=== PATIENT | male | born 1950 | race Caucasian/White ===

== ENCOUNTER 2017-08-04 14:49 | Emergency (ER) | payer OTHER, MEDICARE ==
[~2017-08-04] VITALS: Ht 182.9 cm; Wt 123.6 kg
[~2017-08-04 14:49] MED LIST: ASPI81TA3 OR; LOPR50TA OR; MULTIVIT PO; PLAV75TA2 OR; XANA0.5T OR; ZOCO40TA OR; [UNRECOGNIZED DRUG - OTHER] PO
[2017-08-04] MEDS ORDERED: GABA-283 PO ×2 (15:09)
[2017-08-04] MEDS ORDERED: BACL10TA2 PO (15:09)
[2017-08-04] MEDS ORDERED: LOSA50TA20 PO (15:11)
[2017-08-04] MEDS ORDERED: SERT50TA PO (15:11)
[2017-08-04] MEDS ORDERED: COUM2.5T17 PO (15:11)
[2017-08-04 16:40] VITALS: BP 164/95
== END 2017-08-04 16:42 | disposition home or self-care (01) ==
LOC: M ED 14:49
DX: S01.01XA Laceration without foreign body of scalp, initial encounter (principal); W22.8XXA Striking against or struck by other objects, initial encounter; Y92.511 Restaurant or cafe as the place of occurrence of the external cause; Y93.89 Activity, other specified; Y99.8 Other external cause status; I10 Essential (primary) hypertension; E78.5 Hyperlipidemia, unspecified; R16.0 Hepatomegaly, not elsewhere classified; Z86.73 Personal history of transient ischemic attack (TIA), and cerebral infarction without residual deficits; Z79.899 Other long term (current) drug therapy; Z79.82 Long term (current) use of aspirin; Z79.01 Long term (current) use of anticoagulants; Z87.891 Personal history of nicotine dependence

== ENCOUNTER 2019-02-04 17:20 | Emergency (ER) | payer MEDICARE, OTHER ==
[~2019-02-04] VITALS: Ht 182.9 cm; Wt 131.8 kg
[~2019-02-04 17:20] MED LIST changes: +BACL10TA2 PO; +COUM2.5T17 PO; +GABA-845 PO; +LOSA50TA88 PO; +SERT-141 PO
[2019-02-04] MEDS ORDERED: IPRATROPIUM 0.5MG/ALBUTEROL 2.5MG INH SOL UD 3ML (DUONEB)(J7620) NEB ONE (17:45)
[2019-02-04] MEDS ORDERED: methylPREDNISolone INJ 125 MG/2 ML VIAL (J2930) IV ONE (17:45)
[2019-02-04 17:59] LABS: BASO # 0.1 10^3/uL (0.0-0.2); BASO % 0.8 % (0.0-1.0); EOS # 0.1 10^3/uL (0.0-0.50); EOS % 1.5 % (0.0-3.0); HEMATOCRIT 47.4 % (42.0-52.0); HEMOGLOBIN 16.2 g/dl (13.5-17.5); LYMPH % 17.1 % (24.0-44.0); MEAN CORPUSCULAR HEMOGLOBIN 32.1 pg (27.0-33.0); MEAN CORPUSCULAR HGB CONC 34.2 g/dl (32.0-36.5); MEAN CORPUSCULAR VOLUME 93.9 fl (80.0-96.0); MONO # 0.4 10^3/uL (0.0-0.8); MONO % 6.3 % (0.0-5.0); NEUTROPHILS # 4.5 10^3/uL (1.8-7.7); NEUTROPHILS % 73.6 % (36.0-66.0); PLATELET COUNT, AUTOMATED 145 10^3/uL (150-450); RED BLOOD COUNT 5.05 10^6/uL (4.30-6.10); WHITE BLOOD COUNT 6.1 10^3/uL (4.0-10.0)
[2019-02-04 18:11] LABS: INR 2.17; PROTHROMBIN TIME 24.6 SECONDS (12.1-14.4)
[2019-02-04 18:12] LABS: ABG BASE EXCESS -2.3 (-2.0-2.0); ABG HCO3 22.5 MEQ/L (22.0-26.0); ABG O2 SATURATION 93.1 % (95.0-99.0); ABG PARTIAL PRESSURE CO2 39.3 mmHg (35.0-45.0); ABG PARTIAL PRESSURE O2 63.9 mmHg (75.0-100.0); ABG STANDARD HCO3 22.4 MEQ/L (22.0-26.0); ABG TOTAL CO2 23.7 MEQ/L (23.0-31.0); ABG pH (ARTERIAL) 7.376 UNITS (7.350-7.450)
[2019-02-04 18:12] LABS: PARTIAL THROMBOPLASTIN TIME 39.1 SECONDS (25.4-37.6)
[2019-02-04] MEDS ORDERED: FUROSEMIDE 40 MG/4 ML VIAL (J1940) IV ONE (18:30)
[2019-02-04 18:37] LABS: INFLUENZA A AMPLIFICATION NEGATIVE (NEGATIVE); INFLUENZA B AMPLIFICATION NEGATIVE (NEGATIVE)
[2019-02-04 18:45] LABS: ALT/SGPT 62 U/L (12-78); BILIRUBIN,DIRECT 0.3 MG/DL (0.0-0.2); BILIRUBIN,TOTAL 1.6 MG/DL (0.2-1.0); BLOOD UREA NITROGEN 15 MG/DL (7-18); CALCIUM LEVEL 8.2 MG/DL (8.8-10.2); CARBON DIOXIDE LEVEL 25 MEQ/L (21-32); CHLORIDE LEVEL 107 MEQ/L (98-107); CPK CREATINE PHOSPHOKINASE 267 U/L (39-308); CREATININE FOR GFR 1.08 MG/DL (0.70-1.30); GLOMERULAR FILTRATION RATE > 60.0 (>49); GLUCOSE, FASTING 126 MG/DL (70-100); MB/CK RELATIVE INDEX 5.39 (< OR =4); NT-PRO BNP 819 PG/ML (<125); POTASSIUM SERUM 4.1 MEQ/L (3.5-5.1); SODIUM LEVEL 140 MEQ/L (136-145); TOTAL PROTEIN 6.9 GM/DL (6.4-8.2)
[2019-02-04] MEDS ORDERED: ISOVUE-370 76% 100ML VIAL (Q9967) As Ordered ONE (18:53)
[2019-02-04] MEDS ORDERED: NITROGLYCERIN 0.4 MG SUBL TABLET SL PRN (19:00)
--- NOTE | 2019-02-04 19:31 | ECGEPIP ---
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
[2019-02-04 19:39] VITALS: BP 169/77
[2019-02-04] MEDS ORDERED: NITROGLYCERIN 2% OINT 1 GM *U/D* PKT TOP ONE (19:45)
[2019-02-04] MEDS ORDERED: ASPIRIN 81 MG CHEW TABLET PO ONE (19:45)
--- NOTE | 2019-02-04 19:50 | REPVR ---
EXAM: CT Angiography Chest With Contrast EXAM DATE/TIME: 02/04/2019 6:56 PM CLINICAL HISTORY: 69 years old, male; Pain; Chest pain; Type not specified; Patient HX: R/O dissection; Additional info: Chest pain R/O dissection TECHNIQUE: Imaging protocol: Axial computed tomographic angiography images of the chest with intravenous contrast using CT angiography protocol. Coronal and sagittal reformatted images were created and reviewed. 3D rendering: MIP reconstructed images were created and reviewed. Radiation optimization: All CT scans at this facility use at least one of these dose optimization techniques: automated exposure control; mA and/or kV adjustment per patient size (includes targeted exams where dose is matched to clinical indication); or iterative reconstruction. Contrast material: ISOVUE 370 Contrast volume: 100 ml Contrast route: IV COMPARISON: CR Chest, 2 view PA, Lat 02/04/2019 6:10 PM FINDINGS: Pulmonary arteries: There is opacification of the pulmonary arteries with no evidence of pulmonary embolus. There is a 2 cm lymph node between the superior vena cava and trachea. Aorta: There is opacification of the aorta which appears normal in size and intact with no evidence of dissection. Lungs: There is prominence of the vascular markings interstitial lung markings in the perihilar regions and posterior aspect of the lungs consistent with mild congestive failure. The ventilation of the lungs has improved since 02/04/2019. There is no evidence of consolidation of lung. Pleural space: There is small bilateral pleural effusions. Heart: The heart is top normal in size. There is no evidence of pericardial effusion. Lymph nodes: Small lymph nodes along the aortic arch. There is small infrahilar lymph nodes. Bones/joints: Unremarkable. No acute fracture. Soft tissues: Unremarkable. IMPRESSION: 1. The aorta is normal in size and intact. 2. Mild congestive changes but markedly decreased sense the examination of 02/04/2019. 3. Small bilateral pleural effusions. Electronically signed by: Robert Hunt On 02/04/2019 19:49:35 PM
--- NOTE | 2019-02-04 20:07 | REPVR ---
EXAM: CT Angiography Abdomen and Pelvis With Contrast EXAM DATE/TIME: 02/04/2019 6:56 PM CLINICAL HISTORY: 69 years old, male; Pain; Abdominal pain; Other: Chest and abd pain; Patient HX: R/O dissection; Additional info: Chest pain R/O dissection TECHNIQUE: Imaging protocol: Axial computed tomographic angiography images of the abdomen and pelvis with intravenous contrast material, including non-contrast images if performed. Coronal and sagittal reformatted images were created and reviewed. 3D rendering: MIP reconstructed images were created and reviewed. Radiation optimization: All CT scans at this facility use at least one of these dose optimization techniques: automated exposure control; mA and/or kV adjustment per patient size (includes targeted exams where dose is matched to clinical indication); or iterative reconstruction. Contrast material: ISOVUE 370 Contrast volume: 100 ml Contrast route: IV COMPARISON: CT ABD PELVIS WITH CONTRAST 05/20/2016 12:54 AM FINDINGS: VASCULATURE: Aorta: There is calcification of the aorta consistent with atherosclerotic changes. There is no evidence of aortic dissection. Celiac trunk and mesenteric arteries: There is opacification of the SMA and celiac artery. ABDOMEN: Liver: Normal appearing liver. Gallbladder and bile ducts: Normal common bile duct. Normal gallbladder. Pancreas: Unremarkable. No mass. No ductal dilation. Spleen: Normal appearing spleen. Adrenals: Normal adrenal glands. Kidneys and ureters: There is enhancement of both kidneys. Normal kidneys. There is no evidence of hydronephrosis. Stomach and bowel: Normal-appearing colon. There is diverticulum at the first portion of duodenum. Cecum is in the right pelvis and there is no evidence of inflammation in the region of the cecum. Retroperitoneal space: There is no evidence of retroperitoneal hematoma. PELVIS: Bladder: Unremarkable. No mass. Reproductive: Normal prostate. ABDOMEN and PELVIS: Intraperitoneal space: Unremarkable. No free air. No significant fluid collection. Bones/joints: There is moderate posterior disc osteophyte complex at multiple levels causing moderate central spinal canal stenosis L1-L2, no to L3, L3-L4, Soft tissues: Unremarkable. Lymph nodes: There is no evidence of lymphadenopathy. There are small lymph nodes along the left side of the aorta. IMPRESSION: The aorta appears intact with no evidence of dissection. Electronically signed by: Robert Hunt On 02/04/2019 20:07:08 PM
[2019-02-04 20:32] VITALS: BP 165/85
--- NOTE | 2019-02-05 09:35 | REP ---
PA and lateral chest: Comparison is 01/08/2012. There are diffuse bilateral interstitial infiltrates as an interval change. There is cardiomegaly, unchanged. The jacklyn, mediastinum, and bony thorax are unremarkable. Impression: Diffuse bilateral interstitial infiltrates. Electronically Signed by Tyler Montalvo MD 02/05/2019 07:38 A
== END 2019-02-04 20:37 | disposition short-term general hospital (02) ==
LOC: EDBD 17:20 → M ED 17:20
DX: I21.4 Non-ST elevation (NSTEMI) myocardial infarction (principal); J81.1 Chronic pulmonary edema; I10 Essential (primary) hypertension; K44.9 Diaphragmatic hernia without obstruction or gangrene; Z86.73 Personal history of transient ischemic attack (TIA), and cerebral infarction without residual deficits; Z79.899 Other long term (current) drug therapy; Z79.01 Long term (current) use of anticoagulants; Z87.891 Personal history of nicotine dependence
CPT/HCPCS: 36600; 71046; 71275; 74174; 80048; 80076; 82550; 82553; 82803; 83880; 84443; 84484; 85025; 85610; 85730; 87502; 93005; 93041; 94640; 96374; 96375; 99285; J1940; J2930; Q9967

== ENCOUNTER → 2019-02-21 | Outpatient (REF) | payer MEDICARE ==
[2019-02-21 09:21] LABS: INR 2.24; PROTHROMBIN TIME 25.2 SECONDS (12.1-14.4)
== END ==
PROVIDERS: ATTEND Internal Medicine
DX: I48.91 Unspecified atrial fibrillation (principal)

== ENCOUNTER → 2019-02-26 | Outpatient (REF) | payer MEDICARE ==
[2019-02-26 19:13] LABS: INR 1.51; PROTHROMBIN TIME 18.4 SECONDS (12.1-14.4)
== END ==
PROVIDERS: ATTEND Internal Medicine
DX: I48.91 Unspecified atrial fibrillation (principal)

== ENCOUNTER → 2019-02-28 | Outpatient (REF) | payer MEDICARE ==
[2019-02-28 09:16] LABS: HEMATOCRIT 33.8 % (42.0-52.0); HEMOGLOBIN 10.6 g/dl (13.5-17.5); MEAN CORPUSCULAR HEMOGLOBIN 30.3 pg (27.0-33.0); MEAN CORPUSCULAR HGB CONC 31.4 g/dl (32.0-36.5); MEAN CORPUSCULAR VOLUME 96.6 fl (80.0-96.0); PLATELET COUNT, AUTOMATED 329 10^3/uL (150-450); WHITE BLOOD COUNT 6.3 10^3/uL (4.0-10.0)
[2019-02-28 09:26] LABS: INR 1.63; PROTHROMBIN TIME 19.6 SECONDS (12.1-14.4)
[2019-02-28 09:38] LABS: BLOOD UREA NITROGEN 14 MG/DL (7-18); CARBON DIOXIDE LEVEL 26 MEQ/L (21-32); CHLORIDE LEVEL 105 MEQ/L (98-107); CREATININE FOR GFR 1.02 MG/DL (0.70-1.30); GLOMERULAR FILTRATION RATE > 60.0 (>49); GLUCOSE, FASTING 110 MG/DL (70-100); SODIUM LEVEL 139 MEQ/L (136-145)
== END ==
PROVIDERS: ATTEND Internal Medicine
DX: I48.91 Unspecified atrial fibrillation (principal)

== ENCOUNTER → 2019-03-02 | Outpatient (REF) | payer MEDICARE ==
[2019-03-02 07:01] LABS: INR 1.65; PROTHROMBIN TIME 19.8 SECONDS (12.1-14.4)
== END ==
PROVIDERS: ATTEND Internal Medicine
DX: I48.91 Unspecified atrial fibrillation (principal)

== ENCOUNTER → 2019-03-04 | Outpatient (REF) | payer MEDICARE ==
[2019-03-04 11:45] LABS: INR 2.1
== END ==
PROVIDERS: ATTEND Internal Medicine
DX: I48.91 Unspecified atrial fibrillation (principal)

== ENCOUNTER → 2019-03-07 | Outpatient (REF) | payer MEDICARE ==
[2019-03-07 10:37] LABS: HEMOGLOBIN 11.9 g/dl (13.5-17.5); MEAN CORPUSCULAR HEMOGLOBIN 30.2 pg (27.0-33.0); MEAN CORPUSCULAR HGB CONC 31.3 g/dl (32.0-36.5); MEAN CORPUSCULAR VOLUME 96.4 fl (80.0-96.0); PLATELET COUNT, AUTOMATED 260 10^3/uL (150-450); RED BLOOD COUNT 3.94 10^6/uL (4.30-6.10); WHITE BLOOD COUNT 5.5 10^3/uL (4.0-10.0)
[2019-03-07 10:53] LABS: INR 2.73; PROTHROMBIN TIME 29.5 SECONDS (12.1-14.4)
[2019-03-07 11:06] LABS: BLOOD UREA NITROGEN 16 MG/DL (7-18); CALCIUM LEVEL 8.7 MG/DL (8.8-10.2); CARBON DIOXIDE LEVEL 25 MEQ/L (21-32); CHLORIDE LEVEL 104 MEQ/L (98-107); CREATININE FOR GFR 0.99 MG/DL (0.70-1.30); GLOMERULAR FILTRATION RATE > 60.0 (>49); GLUCOSE, FASTING 108 MG/DL (70-100); SODIUM LEVEL 139 MEQ/L (136-145)
== END ==
PROVIDERS: ATTEND Internal Medicine
DX: I48.91 Unspecified atrial fibrillation (principal)

== ENCOUNTER → 2019-03-12 | Outpatient (REF) | payer MEDICARE ==
[2019-03-12 10:25] LABS: INR 3.85; PROTHROMBIN TIME 38.8 SECONDS (12.1-14.4)
== END ==
PROVIDERS: ATTEND Internal Medicine
DX: I48.91 Unspecified atrial fibrillation (principal)

== ENCOUNTER → 2019-03-14 | Outpatient (REF) | payer MEDICARE | PROVIDERS: ATTEND Internal Medicine | DX: I48.91 Unspecified atrial fibrillation (principal) ==

== ENCOUNTER 2021-03-24 10:30 | Emergency (ER) | payer MEDICARE ==
[~2021-03-24] VITALS: Ht 182.9 cm; Wt 114.5 kg
[~2021-03-24 10:30] MED LIST changes: +GABA-283 PO; -GABA-845 PO
[2021-03-24 11:07] LABS: BASO % 0.2 % (0.0-1.0); EOS % 0.2 % (0.0-3.0); HEMATOCRIT 43.5 % (42.0-52.0); HEMOGLOBIN 15.4 g/dl (13.5-17.5); LYMPH % 8.4 % (24.0-44.0); MEAN CORPUSCULAR HEMOGLOBIN 32.8 pg (27.0-33.0); MEAN CORPUSCULAR HGB CONC 35.4 g/dl (32.0-36.5); MEAN CORPUSCULAR VOLUME 92.8 fl (80.0-96.0); MONO # 0.9 10^3/uL (0.0-0.8); MONO % 7.4 % (2.0-8.0); NEUTROPHILS # 9.8 10^3/uL (1.5-8.5); NEUTROPHILS % 83.3 % (36.0-66.0); PLATELET COUNT, AUTOMATED 158 10^3/uL (150-450); RED BLOOD COUNT 4.69 10^6/uL (4.30-6.10); WHITE BLOOD COUNT 11.8 10^3/uL (4.0-10.0)
--- NOTE | 2021-03-24 11:21 | REP ---
INDICATION: CHEST PAIN COMPARISON: 02/04/2019 TECHNIQUE: Portable AP view of the chest FINDINGS: The mediastinum and cardiac silhouette are stable and within normal limits for portable technique. The lung burleson are clear without acute consolidation, effusion, or pneumothorax. A 6 mm nodule is suggested in the right mid lung zone. Skeletal structures are intact. IMPRESSION: No acute cardiopulmonary process appreciated. 6 mm nodule in the right midlung zone warrants follow-up CT examination. <Electronically signed by Bharath Muller > 03/24/21 [id number]
[2021-03-24 11:29] LABS: BLOOD UREA NITROGEN 14 MG/DL (7-18); CALCIUM LEVEL 9.7 MG/DL (8.8-10.2); CARBON DIOXIDE LEVEL 25 MEQ/L (21-32); CHLORIDE LEVEL 103 MEQ/L (98-107); CREATININE FOR GFR 1.04 MG/DL (0.70-1.30); GLOMERULAR FILTRATION RATE > 60.0 (>42); GLUCOSE, FASTING 151 MG/DL (70-100); POTASSIUM SERUM 3.8 MEQ/L (3.5-5.1); SODIUM LEVEL 137 MEQ/L (136-145)
[2021-03-24] MEDS ORDERED: ISOVUE-370 76% 100ML VIAL As Ordered ONE (11:45)
--- NOTE | 2021-03-24 12:16 | REP ---
INDICATION: midepigastric pain, diffuse chest pain COMPARISON: None. TECHNIQUE: Axial contrast enhanced images from the thoracic inlet to the upper abdomen using pulmonary embolus technique with multiplanar re-formations. 75 ml Isovue 370 intravenous contrast material administered without complication. This CT examination was performed using the following dose reduction techniques: Automated exposure control, adjustment of mA and/or kv according to the patient's size, and use of iterative reconstruction technique. FINDINGS: Examination is somewhat limited due to respiratory motion artifact. However, satisfactory enhancement of the pulmonary vasculature is achieved and no filling defects are identified to suggest pulmonary embolus. Atherosclerotic changes to the thoracic aorta and coronary arteries noted without aortic aneurysm or dissection. Mild cardiomegaly without pericardial effusion. Evidence for prior aortic valve repair noted. The bilateral lung burleson are well aerated and clear without consolidation pleural effusion or pneumothorax. Tracheobronchial tree is patent. No nodule or mass lesion is identified. No adenopathy noted. Surrounding musculoskeletal structures intact IMPRESSION: No evidence for pulmonary embolus. No acute mediastinal or pleural parenchymal process. <Electronically signed by Bharath Muller > 03/24/21 [id number]
--- NOTE | 2021-03-24 12:18 | REP ---
INDICATION: midepigastric pain, diffuse chest pain. COMPARISON: None TECHNIQUE: Axial contrast-enhanced images from the lung bases to the pubic symphysis using 100 cc Isovue 370 intravenous contrast material. Coronal and sagittal reformations obtained. This CT examination was performed using the following dose reduction techniques: Automated exposure control, adjustment of mA and/or kv according to the patient's size, and the use of iterative reconstruction technique. FINDINGS: Gallbladder is distended and gallstones are identified along with subtle pericholecystic stranding. Findings are suspicious for early acute cholecystitis and correlation is required. Liver demonstrates fatty infiltration without focal hepatic lesion. Spleen, pancreas, bilateral adrenal glands and kidneys are normal. Small hiatal hernia noted. Small and large bowel without obstruction or acute inflammatory process. Scattered diverticula noted without acute diverticulitis. Pelvis demonstrates normal bladder and age-appropriate prostate/seminal vesicles. Small fat containing inguinal hernias noted. No ascites. No free air. No intraperitoneal or retroperitoneal adenopathy. Atherosclerotic changes to the aorta and vasculature without aneurysm or dissection. Musculoskeletal structures are intact and without acute osseous abnormality. IMPRESSION: 1. Findings suspicious for early acute cholecystitis and correlation is recommended. 2. Further nonacute findings as described above. <Electronically signed by Bharath Muller > 03/24/21 [id number]
[2021-03-24 12:37] LABS: INR 2.21
[2021-03-24 12:53] LABS: PARTIAL THROMBOPLASTIN TIME 59.9 SECONDS (24.2-38.5)
[2021-03-24 12:57] LABS: ALBUMIN 4.1 GM/DL (3.2-5.2); ALT/SGPT 26 U/L (12-78); BILIRUBIN,DIRECT 0.4 MG/DL (0.0-0.2); BILIRUBIN,TOTAL 1.7 MG/DL (0.2-1.0); LIPASE 111 U/L (73-393); TOTAL PROTEIN 7.2 GM/DL (6.4-8.2)
--- NOTE | 2021-03-24 13:08 | REP ---
INDICATION: ruq pain, abnormal ct COMPARISON: 05/20/2016 TECHNIQUE: Real time christian scale ultrasound examination using curved array transducer. FINDINGS: Gallbladder demonstrates mild wall thickening to 5 mm with small amount of pericholecystic fluid, layering sludge and gallstones. No biliary ductal dilatation is appreciated and the common bile duct measures 4 mm diameter. Liver is hyperechoic and consistent with fatty infiltration. Pancreas is incompletely evaluated due to interposed bowel gas. Right kidney is normal in reniform shape without hydronephrosis and measures 12.2 x 5.9 x 6.2 cm. No ascites. IMPRESSION: Cholelithiasis. <Electronically signed by Bharath Muller > 03/24/21 [id number]
[2021-03-24 16:00] VITALS: BP 161/72
--- NOTE | 2021-03-25 13:37 | ED PDOC ---
Post-Departure Follow-Up cxr faxed to dr pal for fu Roya Mccain MD Mar 25, 2021 13:37
--- NOTE | 2021-03-25 20:34 | ECGEPIP ---
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
--- NOTE | 2021-03-25 20:38 | ECGEPIP ---
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
== END 2021-03-24 16:28 | disposition home or self-care (01) ==
LOC: M ED 10:30
DX: K80.20 Calculus of gallbladder without cholecystitis without obstruction (principal); R91.1 Solitary pulmonary nodule; E78.5 Hyperlipidemia, unspecified; I10 Essential (primary) hypertension; I48.91 Unspecified atrial fibrillation; I25.2 Old myocardial infarction; K21.9 Gastro-esophageal reflux disease without esophagitis; Z79.01 Long term (current) use of anticoagulants; Z79.899 Other long term (current) drug therapy
CPT/HCPCS: 36415; 71045; 71275; 74177; 76705; 80047; 80048; 80076; 83690; 84484; 85025; 85610; 85730; 93005; 93041; 94760; 99285; Q9967

== ENCOUNTER → 2021-05-09 | Outpatient (CLI) | payer MEDICARE ==
[~2021-05-09] MED LIST changes: +ALDA25TA2 PO; +ALIR75PE3 SC; +B-COCAP7 PO; +CIDA500T2 PO; +COQ-100C5 PO; +D31000TA2 PO; +FURO20TA2 PO; +KP F1200 PO; +LOPI600T PO; +WARF4TAB52 PO; +XANA0.5T PO
== END ==
LOC: M LABSMTC 10:15
PROVIDERS: ATTEND Anesthesiology
DX: Z01.812 Encounter for preprocedural laboratory examination (principal); Z20.822 Contact with and (suspected) exposure to COVID-19

== ENCOUNTER 2021-05-14 07:57 | Day surgery (SDC) | payer OTHER ==
[~2021-05-14] VITALS: Ht 182.9 cm; Wt 107.7 kg
[~2021-05-14 07:57] MED LIST changes: +LIDOCAINE 1% MDV 20ML VIAL SQ PRN; +LR 1,000 ML IV ONE
[2021-05-14] MEDS ORDERED: propofoL 200 MG/20 ML VIAL As Ordered ONE (08:22)
[2021-05-14] MEDS ORDERED: ACETAMINOPHEN 1000MG 100ML IV BTL (OFIRMEV) (J0131 PER 10MG) As Ordered ONE (08:22)
[2021-05-14] MEDS ORDERED: SUGAMMADEX SODIUM 500 MG/5 ML VIAL (BRIDION) As Ordered ONE (08:22)
[2021-05-14] MEDS ORDERED: dexameTHASONE 4 MG/ML 1ML VIAL (J1100 PER 1MG) As Ordered ONE (08:22)
[2021-05-14] MEDS ORDERED: LIDOCAINE 2% 100MG/5ML SDV (FOR ANES.) As Ordered ONE (08:22)
[2021-05-14] MEDS ORDERED: MIDAZOLAM INJ 2MG/2ML VIAL (J2250 PER 1MG) As Ordered ONE (08:22)
[2021-05-14] MEDS ORDERED: ONDANSETRON 4MG/2ML VIAL As Ordered ONE (08:22)
[2021-05-14] MEDS ORDERED: ROCURONIUM BROMIDE 50 MG/5 ML VIAL As Ordered ONE ×2 (08:22→10:51)
[2021-05-14] MEDS ORDERED: KETOROLAC 60MG 2ML VIAL As Ordered ONE (08:22)
[2021-05-14] MEDS ORDERED: fentaNYL 100 MCG/2 ML INJECTION (J3010) As Ordered ONE ×2 (08:23→10:04)
[2021-05-14 08:49] LABS: INR 1.17; PROTHROMBIN TIME 15.2 SECONDS (12.5-14.3)
[2021-05-14] MEDS ORDERED: BUPIVACAINE HCL 0.25% 30ML VIAL As Ordered ONE (09:24)
[2021-05-14] MEDS ORDERED: HYDR-4571 PO (09:54)
[2021-05-14] MEDS ORDERED: LR 1,000 ML IV SCH (12:15)
[2021-05-14] MEDS ORDERED: PERCOCET 5MG/325MG TAB PO PRN (12:15)
[2021-05-14] MEDS ORDERED: METOCLOPRAMIDE INJ 10MG/2ML VIAL (J2765 PER 1) IV PRN (12:15)
[2021-05-14] MEDS ORDERED: ACETAMINOPHEN TAB 650MG DOSE (2X325MG) PO PRN (12:15)
[2021-05-14] MEDS ORDERED: fentaNYL 100 MCG/2 ML INJECTION (J3010) IV PRN (12:15)
[2021-05-14] MEDS ORDERED: NORCO, ANEXSIA 5/325MG TABLET (HYDROcodone/ACETAMINOPHEN) PO PRN (12:15)
[2021-05-14] MEDS ORDERED: ONDANSETRON 4MG/2ML VIAL IV PRN (12:15)
[2021-05-14 13:50] VITALS: BP 174/77
--- NOTE | 2021-05-16 17:48 | RO ---
OPERATIVE NOTE DATE OF OPERATION: 05/14/2021 PREOPERATIVE DIAGNOSIS: Symptomatic gallstones. POSTOPERATIVE DIAGNOSIS: Symptomatic gallstones. PROCEDURE: Robotic-assisted laparoscopic cholecystectomy with lysis of adhesions. SURGEON: Dr. Ahsan Jacobs DATA DEVELOPER: None. ANESTHESIA: General. INDICATIONS FOR PROCEDURE: Patient is a 71-year-old man who had an episode of severe epigastric abdominal pain in March. Evaluation at that time revealed cholelithiasis with some gallbladder wall thickening suggestive of acute cholecystitis. His symptoms remitted. He is now for a laparoscopic cholecystectomy with robotic assistance. DESCRIPTION OF PROCEDURE: The patient was brought to the operating room and placed on the table in a supine position. He was placed under general endotracheal anesthesia. The patient's abdomen was prepped and draped in a sterile fashion. Marcaine 0.25% was infiltrated at each of the trocar sites as needed. Initial entry was in the left upper quadrant. A short transverse incision was made, and a Veress needle was inserted. After a positive hanging drop test, the abdomen was insufflated with carbon dioxide gas. After insufflating the abdomen, an 8 mm robotic port was placed through the abdominal wall without difficulty. The laparoscope was placed. Initial examination showed a normal-appearing liver. Visualized portions of the stomach and small and large bowel appeared normal. Three additional 8 mm ports were then placed under direct vision. The second was just above the umbilicus, and the third and fourth were in the right lower quadrant, spaced appropriately. The patient was then placed into a 15-degree reverse Trendelenburg position and rolled slightly to the left. The patient cart of the [employer] robot was then brought into position, and the endoscopy arm was docked to the supraumbilical port. Targeting took place in the right upper quadrant. A hook cautery was placed in the left upper quadrant port, and a fenestrated bipolar and grasping retractor were placed on the right. I then moved to the control console to proceed with the operation. The edge of the liver was elevated, and the gallbladder was identified. The gallbladder was encased in a thin layer of adherent omentum. It was possible to grasp the fundus and elevate the gallbladder somewhat, and the omentum was then carefully dissected away using the hook cautery. As the gallbladder was freed it was possible to elevate the gallbladder and edge of the liver more fully. Dissection was carried down to the gallbladder neck. Dissection then began through the pericholecystic tissues at the gallbladder neck. With careful dissection, the cholecystic artery was identified, and this was doubly clipped with hemoclips and divided. With further dissection, the cystic duct was clearly identified and dissected circumferentially and was also doubly clipped with hemoclips and divided. The gallbladder was then dissected free from the gallbladder bed. There was some adherence of the gallbladder to the gallbladder bed, and the gallbladder was perforated in the course of dissection, releasing some clear, bilious fluid into the subhepatic space. This was cleared form the right upper quadrant using a suction information technology security manager, and the gallbladder was completely decompressed of additional bile. The dissection then proceeded to complete freeing of the gallbladder from the gallbladder bed. The gallbladder was placed in a specimen retrieval pouch. The right upper quadrant was then copiously irrigated. The right upper quadrant was irrigated and inspected. Final inspection showed no evidence of any bleeding or bile leak. The robotic instruments were then removed. The patient cart was undocked and withdrawn. I then returned to the patient's side. A laparoscope was placed, and the string of the specimen pouch was grasped through the supraumbilical site. Patient was returned to flat position, and the abdomen was then deflated and the trocars were all removed. It was necessary to extend the fascial incision slightly at the supraumbilical site to allow removal of the gallbladder. This was then sent for permanent pathology. The fascia at the supraumbilical site was closed with several interrupted simple sutures of 2-0 Vicryl. The skin incisions were all closed with buried 4-0 Vicryl and Steri-Strips. Light dressings were applied. The patient tolerated the procedure well without apparent complication. He was awakened in the operating room, extubated, and moved to the recovery room in stable condition.
== END 2021-05-14 13:53 | disposition home or self-care (01) ==
LOC: M SDC 07:57
PROVIDERS: ATTEND Surgery
DX: K80.10 Calculus of gallbladder with chronic cholecystitis without obstruction (principal); K82.8 Other specified diseases of gallbladder; I25.2 Old myocardial infarction; I10 Essential (primary) hypertension; E78.5 Hyperlipidemia, unspecified; M54.5 Low back pain; R60.0 Localized edema; I73.9 Peripheral vascular disease, unspecified; R01.1 Cardiac murmur, unspecified; F41.9 Anxiety disorder, unspecified; F32.9 Major depressive disorder, single episode, unspecified; I69.398 Other sequelae of cerebral infarction; R06.83 Snoring; N28.81 Hypertrophy of kidney; E66.9 Obesity, unspecified; Z87.891 Personal history of nicotine dependence; Z79.899 Other long term (current) drug therapy; Z79.01 Long term (current) use of anticoagulants
CPT/HCPCS: 36415; 47562; 85610; 88304; J0131; J1100; J1885; J2250; J2405; J3010; S2900

== ENCOUNTER → 2021-06-26 | Outpatient (CLI) | payer OTHER, MEDICARE ==
[~2021-06-26] MED LIST changes: +HYDR-4571 PO; -LIDOCAINE 1% MDV 20ML VIAL SQ PRN; -LR 1,000 ML IV ONE
[2021-06-26 07:04] LABS: INR 1.2; PROTHROMBIN TIME 15.6 SECONDS (12.7-14.5)
== END ==
LOC: M LAB 06:18
PROVIDERS: ATTEND Nurse Practitioner Family
DX: Z51.81 Encounter for therapeutic drug level monitoring (principal)

== ENCOUNTER → 2021-07-29 | Outpatient (CLI) | payer OTHER ==
[2021-07-29 07:10] LABS: INR 1.16; PROTHROMBIN TIME 15.2 SECONDS (12.7-14.5)
== END ==
LOC: M LAB 06:30
PROVIDERS: ATTEND Nurse Practitioner Family
DX: Z51.81 Encounter for therapeutic drug level monitoring (principal)

== ENCOUNTER → 2021-12-18 | Outpatient (CLI) | payer OTHER ==
[~2021-12-18] MED LIST changes: +LOSA50TA28 PO; -LOSA50TA88 PO
[2021-12-18 07:42] LABS: INR 1.1; PROTHROMBIN TIME 14.6 SECONDS (12.7-14.5)
== END ==
LOC: M LAB 06:25
PROVIDERS: ATTEND Nurse Practitioner Family
DX: Z51.81 Encounter for therapeutic drug level monitoring (principal); Z79.899 Other long term (current) drug therapy

== ENCOUNTER → 2022-01-21 | Outpatient (CLI) | payer OTHER ==
[~2022-01-21] MED LIST changes: -D31000TA2 PO; +VITA100093 PO
[2022-01-21 07:33] LABS: INR 1.29; PROTHROMBIN TIME 16.5 SECONDS (12.7-14.5)
== END ==
LOC: M LAB 06:33
PROVIDERS: ATTEND Nurse Practitioner Family
DX: Z51.81 Encounter for therapeutic drug level monitoring (principal); Z79.01 Long term (current) use of anticoagulants

== ENCOUNTER → 2022-03-04 | Outpatient (CLI) | payer OTHER ==
[2022-03-04 11:02] LABS: INR 1.19; PROTHROMBIN TIME 15.5 SECONDS (12.7-14.5)
== END ==
LOC: M LAB 09:42
PROVIDERS: ATTEND Nurse Practitioner Family
DX: Z51.81 Encounter for therapeutic drug level monitoring (principal); Z79.899 Other long term (current) drug therapy

== ENCOUNTER → 2022-04-07 | Outpatient (CLI) | payer OTHER ==
[2022-04-07 09:13] LABS: INR 1.73; PROTHROMBIN TIME 20.7 SECONDS (12.7-14.5)
== END ==
LOC: M LAB 08:35
PROVIDERS: ATTEND Pain Medicine Interventional Pain Medicine
DX: Z51.81 Encounter for therapeutic drug level monitoring (principal); Z79.899 Other long term (current) drug therapy

== ENCOUNTER → 2022-08-05 | Outpatient (CLI) | payer OTHER ==
[2022-08-05 13:08] LABS: CHOLESTEROL RISK RATIO 6.694 (<5)
== END ==
LOC: M CARPUL 10:12
PROVIDERS: ATTEND Internal Medicine Cardiovascular Disease
DX: I08.0 Rheumatic disorders of both mitral and aortic valves (principal); I25.10 Atherosclerotic heart disease of native coronary artery without angina pectoris; Z95.1 Presence of aortocoronary bypass graft; Z95.2 Presence of prosthetic heart valve; E78.2 Mixed hyperlipidemia

== ENCOUNTER → 2025-01-07 | Outpatient (CLI) | payer MEDICARE ==
[~2025-01-07] MED LIST changes: -GABA-283 PO; +GABA-284 PO
== END ==
LOC: M LAB 08:31
PROVIDERS: ATTEND Physician Assistant
DX: R97.20 Elevated prostate specific antigen [PSA] (principal)